=== PATIENT | male | born 1935 ===

== ENCOUNTER 2017-10-20 13:01 | Observation (INO) | payer MEDICARE, BC ==
[2017-10-20 13:05] VITALS: BMI 29.2
--- NOTE | 2017-10-20 13:52 | ED PDOC ---
HPI: Chest Pain Time Seen by Provider: 10/20/17 13:16 Chief Complaint (Nursing): Chest Pain Additional Complaint(s): 81yo M with PMHx CAD (pacemaker, 5 stents), HTN, HLD c/o chest pain. left chest pain x1 day, triggered by walking, duration 10 min, sharp, no radiation, no current chest pain. Cardiology Dr. Thorne last saw pt 2 weeks ago and added HCTZ 25mg daily and amlodipine 5 mg daily. Pt is on asa 81, pravastatin 40mg, coreg 25 BID, hydralazine 25 BID. PCP: [address] [place] [address] (Dr. Kenyon?), last seen 1-2 days ago Past Medical History Vital Signs: Last Vital Signs Temp 97.8 F 10/20/17 13:05 Pulse 62 10/20/17 13:05 Resp 18 10/20/17 13:05 BP 176/79 H 10/20/17 13:05 Pulse Ox 98 10/20/17 14:22 - Medical History PMH: Anxiety, Diverticulitis, HTN, Hypercholesterolemia Denies: Arthritis, CHF, COPD, HIV, Hypothyroidism, Chronic Kidney Disease, Rheumatoid Arthritis - Surgical History Surgical History: Coronary Stent - Family History Family History: States: Unknown Family Hx - Home Medications Home Medications: Ambulatory Orders Medication Instructions Recorded Alprazolam [Xanax] 0.25 mg PO BID 04/13/15 Ergocalciferol (Vitamin D2) 50,000 unit PO QWK 04/13/15 [Vitamin D2] Pravastatin Sodium [Pravachol] 40 mg PO HS 08/26/16 Aspirin [Ecotrin] 81 mg PO DAILY #30 tabec 08/30/16 Carvedilol [Coreg] 25 mg PO Q12H #60 tab 08/30/16 Clopidogrel [Plavix] 75 mg PO DAILY #30 tab 08/30/16 Esomeprazole Magnesium [Nexium] 40 mg PO DAILY #30 capsule. 08/30/16 Etanercept [Enbrel] 50 mg SC QWK #4 syringe 08/30/16 amLODIPine [Norvasc] 10 mg PO DAILY #30 tab 08/30/16 Lisinopril [Zestril] 20 mg PO BID 06/17/17 Primidone [Mysoline] 50 mg PO DAILY 06/17/17 Primidone [Mysoline] 75 mg PO HS 06/17/17 hydrALAZINE [Apresoline] 25 mg PO TID 06/17/17 Ciprofloxacin HCl [Cipro] 500 mg PO BID #14 tablet 06/18/17 - Allergies Allergies/Adverse Reactions: Allergies Allergy/AdvReac Type Severity Reaction Status Date / Time No Known Allergies Allergy Verified 06/17/17 17:44 Review of Systems ROS Statement: Except As Marked, All Systems Reviewed And Found Negative Cardiovascular: Positive for: Chest Pain Physical Exam - Reviewed Nursing Documentation Reviewed: Yes Vital Signs Reviewed: Yes - Physical Exam Appears: Positive for: Well, Non-toxic Head Exam: Positive for: ATRAUMATIC, NORMAL INSPECTION Skin: Positive for: Warm, Dry Neck: Positive for: Normal, Supple Cardiovascular/Chest: Positive for: Regular Rate, Rhythm (paced). Negative for : Chest Non Tender Respiratory: Positive for: Normal Breath Sounds. Negative for: Decreased Breath Sounds Back: Positive for: Normal Inspection Neurologic/Psych: Positive for: Alert, Oriented - ECG O2 Sat by Pulse Oximetry: 98 Medical Decision Making Medical Decision Makin DDX stable angina, ACS, NSTEMI troponin, CBC, CMP, BNP EKG paced CXR reassessment 1421 CXR no consolidations admit to medical service for obs given extensive cardiac hx Disposition - Clinical Impression Clinical Impression: Chest pain - Disposition Disposition Time: 14:22 Condition: STABLE Forms: i[employer]clude (Romanian)
--- NOTE | 2017-10-20 14:22 | CARD ---
APPROVED REPORT EKG Measurement Heart [id number] ME 206P [id number] <Conclusion> AV dual-paced rhythm Abnormal ECG
[2017-10-20 14:48] LABS: BASO # 0.1 K/uL (0.0-0.2); EOS # 0.2 K/uL (0.0-0.7); EOS % 3.7 % (0.0-4.0); HEMOGLOBIN 10.3 g/dL (12.0-18.0); LYMPH # 1.7 K/uL (1.0-4.3); LYMPH % 26.9 % (20.0-40.0); MEAN CELL VOLUME 92.4 fl (80.0-94.0); MEAN CORPUSCULAR HEMOGLOBIN 31.2 pg (27.0-31.0); MEAN CORPUSCULAR HGB CONC 33.8 g/dL (33.0-37.0); MEAN PLATELET VOLUME 8.2 fl (7.2-11.7); MONO # 0.4 K/uL (0.0-0.8); MONO % 6.7 % (0.0-10.0); NEUT # 3.8 K/uL (1.8-7.0); NEUT % 61.7 % (50.0-75.0); NRBC % 0.1 % (0.0-0.0); RBC 3.29 Mil/uL (4.40-5.90); RED CELL DISTRIBUTION WIDTH 13.5 % (11.5-14.5); WHITE BLOOD COUNT 6.1 K/uL (4.8-10.8)
[2017-10-20 15:12] LABS: ALB/GLOB RATIO 1.2 (1.0-2.1); ALBUMIN 4.4 g/dL (3.5-5.0); CALCIUM 9.3 mg/dL (8.4-10.2)
[2017-10-20 15:14] LABS: TROPONIN I 0.013 ng/mL (0.00-0.120)
--- NOTE | 2017-10-20 16:20 | RAD ---
PROCEDURE: CHEST RADIOGRAPH, 1 VIEW HISTORY: chest pain COMPARISON: 06/17/2017. FINDINGS: LUNGS: Clear. PLEURA: No pneumothorax or pleural fluid seen. CARDIOVASCULAR: No radiographic findings to suggest acute or significant cardiovascular disease. Position/ configuration of pacemaker device: Satisfactory. OSSEOUS STRUCTURES: No significant abnormalities. VISUALIZED UPPER ABDOMEN: Normal. OTHER FINDINGS: None. IMPRESSION: No active disease. No acute/significant interval changes.
[2017-10-20] MEDS ORDERED: Pravastatin Sodium 40 MG TAB PO SCH (22:00)
[2017-10-20] MEDS: Insulin Lispro (humaLOG) 100 Units/ml Inj SC SCH (23:00)
[2017-10-20 23:39] VITALS: RESP 18
[2017-10-21] MEDS: Insulin Lispro (humaLOG) 100 Units/ml Inj SC SCH ×2 (06:25→13:00)
[2017-10-21] MEDS ORDERED: Enoxaparin 30 mg Syringe SC SCH ×3 (09:00)
[2017-10-21] MEDS ORDERED: Pantoprazole 40 mg EC Tab PO SCH (09:00)
[2017-10-21] MEDS ORDERED: Ergocalciferol 50,000 Intl Units Cap PO SCH (09:00)
--- NOTE | 2017-10-21 11:01 | CP.PCM.CON ---
History of Present Illness - History of Present Illness History of Present Illness: this 81-year- old man with a history of hypertension and diffuse vascular disease requiring coronary bypass graft surgery and carotid endarterectomy was brought to the hospital complaining of chest discomfort upon walking approximately 3 blocks. Patient has not experienced this discomfort in the past. And walking around in the house had not produce similar discomfort. He did not radiate to his jaw or was not accompanied by any perspiration nausea vomiting. 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 He has been seeing a ordnance engineer on a regular basis. The patient is also known to have chronic kidney disease. Physical examination shows an elderly man alert awake and coherent able to lie flat and breathe comfortably and carry on a conversation. His respiratory rate was 14-16 breaths per minute and his telemetry shows atrial paced and ventricular paced rhythm.his blood pressure was 140/74 mmHg. His jugular venous pressure was not elevated. There was no edema or his lower extremity. His pedal pulses for feebly felt. There were no carotid bruits. His apex was not palpable. First and second heart sounds were normal. There was no murmur there was no gallop there were no rales. His abdomen was soft liver and spleen are not palpable. His electro-cardiogram showed atrial and ventricular paced rhythm. His lab data showed normal troponins indicating no evidence off myocyte injury. His proBNP was normal. His GFR was 42 mL per minute indicating stage II chronic kidney disease. Impression: chest pain in a patient with known coronary artery disease. Acute coronary syndrome was ruled out. I have instructed the patient to take aspirin on a regular basis and have prescribed nitroglycerin to be taken on a when necessary basis. I will arrange a nuclear stress test to evaluate for evidence of potentially ischemic myocardium. I have spoken with his daughter who is a nurse at length about it. The patient may be allowed to return home to be managed as an outpatient. Past Patient History - Past Medical History & Family History Past Medical History?: Yes - Past Social History Smoking Status: Never Smoked - CARDIAC Hx Cardiac Disorders: Yes Hx Hypercholesterolemia: Yes Hx Hypertension: Yes Hx Pacemaker: Yes Hx Peripheral Edema: Yes - PULMONARY Hx Chronic Obstructive Pulmonary Disease (COPD): No - NEUROLOGICAL HX Cerebrovascular Accident: No - HEENT Hx HEENT Problems: No Hx Cataracts: Yes - RENAL Hx Chronic Kidney Disease: No - ENDOCRINE/METABOLIC Hx Hypothyroidism: No - HEMATOLOGICAL/ONCOLOGICAL Hx Human Immunodeficiency Virus (HIV): No - INTEGUMENTARY Hx Dermatological Problems: No - MUSCULOSKELETAL/RHEUMATOLOGICAL Hx Arthritis: No Hx Falls: No Hx Rheumatoid Arthritis: Yes - GASTROINTESTINAL Hx Diverticulitis: Yes - GENITOURINARY/GYNECOLOGICAL Hx Genitourinary Disorders: No - PSYCHIATRIC Hx Anxiety: Yes Hx Substance Use: No - SURGICAL HISTORY Hx Cardiac Catheterization: Yes Hx Coronary Stent: Yes (X5) Hx Herniorrhaphy: Yes - ANESTHESIA Hx Anesthesia: Yes Hx Anesthesia Reactions: No Hx Malignant Hyperthermia: No Has any member of the family had a problem w/ anesthesia?: No Meds Allergies/Adverse Reactions: Allergies Allergy/AdvReac Type Severity Reaction Status Date / Time No Known Allergies Allergy Verified 06/17/17 17:44 - Medications Medications: Current Medications Alprazolam (Xanax) 0.25 mg PO Q12 PRN PRN Reason: Anxiety Stop: 10/27/17 21:01 Last Admin: 10/20/17 21:44 Dose: 0.25 mg Amlodipine Besylate (Norvasc) 5 mg PO DAILY [facility] Last Admin: 10/21/17 08:52 Dose: 5 mg Carvedilol (Coreg) 25 mg PO Q12 [facility] Last Admin: 10/21/17 08:54 Dose: 25 mg Doxazosin Mesylate (Cardura) 2 mg PO BID [facility] Last Admin: 10/21/17 08:55 Dose: 2 mg Enoxaparin Sodium (Lovenox) 30 mg SC DAILY [facility] PRN Reason: Protocol Last Admin: 10/21/17 08:52 Dose: 30 mg Ergocalciferol (Drisdol 50,000 Intl Units Cap) 1 cap PO QWK [facility] Gabapentin (Neurontin) 100 mg PO Q8 [facility] Last Admin: 10/21/17 08:54 Dose: 100 mg Hydralazine HCl (Apresoline) 25 mg PO Q8 [facility] Last Admin: 10/21/17 08:53 Dose: 25 mg Hydrochlorothiazide (Microzide) 12.5 mg PO DAILY [facility] Last Admin: 10/21/17 08:53 Dose: 12.5 mg Insulin Human Lispro (Humalog) 0 units SC ACCU-CHECK [facility] PRN Reason: Protocol Last Admin: 10/21/17 06:25 Dose: Not Given Pantoprazole Sodium (Protonix Ec Tab) 40 mg PO DAILY [facility] Last Admin: 10/21/17 08:53 Dose: 40 mg Pravastatin Sodium (Pravachol) 40 mg PO HS [facility] Last Admin: 10/20/17 21:37 Dose: 40 mg Primidone (Mysoline) 50 mg PO Q12 [facility] Last Admin: 10/21/17 08:53 Dose: 50 mg Results - Vital Signs Recent Vital Signs: Last Vital Signs Temp 98.4 F 10/21/17 08:00 Pulse 63 10/21/17 08:54 Resp 18 10/21/17 08:00 BP 178/68 H 10/21/17 08:54 Pulse Ox 97 10/21/17 08:00 - Labs Result Diagrams: 10/20/17 14:43 10/20/17 14:43 Labs: Laboratory Results - last 24 hr 10/20/17 10/20/17 10/20/17 14:43 14:43 21:38 WBC 6.1 RBC 3.29 L Hgb 10.3 L Hct 30.4 L MCV 92.4 MCH 31.2 H MCHC 33.8 RDW 13.5 Plt Count 208 MPV 8.2 Neut % (Auto) 61.7 Lymph % (Auto) 26.9 [place] % (Auto) 6.7 Eos % (Auto) 3.7 Baso % (Auto) 1.0 Neut # (Auto) 3.8 Lymph # (Auto) 1.7 [place] # (Auto) 0.4 Eos # (Auto) 0.2 Baso # (Auto) 0.1 Sodium 140 Potassium 4.8 Chloride 100 Carbon Dioxide 28 Anion Gap 17 BUN 26 H Creatinine 1.6 H Est GFR ( Amer) 50 Est GFR (Non-Af Amer) 42 POC Glucose (mg/dL) 82 Random Glucose 100 Calcium 9.3 Total Bilirubin 0.4 AST 35 ALT 48 Alkaline Phosphatase 80 Troponin I 0.0130 NT-Pro-B Natriuret Pep 668 Total Protein 7.9 Albumin 4.4 Globulin 3.5 Albumin/Globulin Ratio 1.2 10/20/17 10/21/17 10/21/17 22:50 04:15 05:17 WBC RBC Hgb Hct MCV MCH MCHC RDW Plt Count MPV Neut % (Auto) Lymph % (Auto) [place] % (Auto) Eos % (Auto) Baso % (Auto) Neut # (Auto) Lymph # (Auto) [place] # (Auto) Eos # (Auto) Baso # (Auto) Sodium Potassium Chloride Carbon Dioxide Anion Gap BUN Creatinine Est GFR ( Amer) Est GFR (Non-Af Amer) POC Glucose (mg/dL) 84 Random Glucose Calcium Total Bilirubin AST ALT Alkaline Phosphatase Troponin I 0.0140 0.0210 NT-Pro-B Natriuret Pep Total Protein Albumin Globulin Albumin/Globulin Ratio
--- NOTE | 2017-10-21 11:24 | CARD ---
APPROVED REPORT EXAM: Two-dimensional and M-mode echocardiogram with Doppler and color Doppler. Other Information Quality : GoodRhythm : Pacemaker INDICATION Chest Pain Surgery/Intervention Pacemaker: 2D DIMENSIONS IVSd0.98 (0.7-1.1cm)LVDd4.79 (3.9-5.9cm) LVOT Diameter2.32 (1.8-2.4cm)PWd0.72 (0.7-1.1cm) IVSs1.64 (0.8-1.2cm)LVDs2.40 (2.5-4.0cm) FS (%) 49.9 %PWs1.45 (0.8-1.2cm) M-Mode DIMENSIONS Left Atrium (MM)4.62 (2.5-4.0cm)IVSd1.29 (0.7-1.1cm) Aortic Root3.03 (2.2-3.7cm)LVDd5.47 (4.0-5.6cm) Aortic Cusp Exc.1.94 (1.5-2.0cm)PWd1.06 (0.7-1.1cm) IVSs1.85 cmFS (%) 41 % LVDs3.21 (2.0-3.8cm)PWs1.91 cm Mitral Valve MV E Saguyays81.3cm/sMV DECEL [id number] A Pwbnbajs47.2cm/s MV TAL34sgR/A ratio1.0MVA (PHT)3.01cm2 TDI Lateral E' Peak V9.04cm/sMedial E' Peak V6.52cm/sE/Lateral E'8.2 E/Medial E'11.4 Pulmonary Valve PV Peak Jxpyqsgt818.3cm/s LEFT VENTRICLE The left ventricle is normal size. There is normal left ventricular wall thickness. Left ventricle systolic function is normal. The Ejection Fraction is 65-70%. There is normal LV segmental wall motion. Transmitral Doppler flow pattern is Grade I-abnormal relaxation pattern. RIGHT VENTRICLE The right ventricle is normal size. There is normal right ventricular wall thickness. The right ventricular systolic function is normal. ATRIA The left atrium is mildly dilated. The right atrium size is normal. AORTIC VALVE The aortic valve is normal in structure. Pacing lead was seen traversing the valve. No aortic regurgitation is present. There is no aortic valvular stenosis. MITRAL VALVE The mitral valve is normal in structure. There is no evidence of mitral valve prolapse. There is no mitral valve stenosis. There is no mitral valve regurgitation noted. TRICUSPID VALVE The tricuspid valve is normal in structure. There is no tricuspid valve regurgitation noted. PULMONIC VALVE The pulmonary valve is normal in structure. There is no pulmonic valvular regurgitation. GREAT VESSELS The aortic root is normal in size. The IVC is normal in size and collapses >50% with inspiration. PERICARDIAL EFFUSION The pericardium appears normal. <Conclusion> The left ventricle is normal size. There is normal left ventricular wall thickness. There is normal LV segmental wall motion. Left ventricle systolic function is normal. The Ejection Fraction is 65-70%. Transmitral Doppler flow pattern is Grade I-abnormal relaxation pattern.
[2017-10-21 11:43] VITALS: BP 143/63; PULSE 57; TEMP 98.3; O2SAT 95
--- NOTE | 2017-10-21 13:51 | CP.PCM.HP ---
History of Present Illness - History of Present Illness History of Present Illness: Cc: Chest pain An 81 year old male with a pmhx of CAD with CABG, PPM, HTN and hyperlipidemia who present to the ED with complains of chest pain x 1 day. Patient states pain started after he did about a 10 minute walk. He described the pain as sharp. The pain did not radiate to his arm, jaw or back. No current chest pain. Denies headache, sob, nausea, fever or chills. Pt's under cutter, Dr. Thorne had seen pt 2 weeks ago and added HCTZ 25mg and amlodipine 5 mg daily to his regimen. Pt has been compliant with his cardiac meds. Present on Admission - Present on Admission Any Indicators Present on Admission: No Review of Systems - Review of Systems All systems: reviewed and no additional remarkable complaints except (as stated) - Constitutional Constitutional: As Per HPI - Cardiovascular Cardiovascular: Chest Pain - Respiratory Respiratory: As Per HPI Past Patient History - Past Medical History & Family History Past Medical History?: Yes - Past Social History Smoking Status: Never Smoked - CARDIAC Hx Cardiac Disorders: Yes Hx Hypercholesterolemia: Yes Hx Hypertension: Yes Hx Pacemaker: Yes Hx Peripheral Edema: Yes - PULMONARY Hx Chronic Obstructive Pulmonary Disease (COPD): No - NEUROLOGICAL HX Cerebrovascular Accident: No - HEENT Hx HEENT Problems: No Hx Cataracts: Yes - RENAL Hx Chronic Kidney Disease: No - ENDOCRINE/METABOLIC Hx Hypothyroidism: No - HEMATOLOGICAL/ONCOLOGICAL Hx Human Immunodeficiency Virus (HIV): No - INTEGUMENTARY Hx Dermatological Problems: No - MUSCULOSKELETAL/RHEUMATOLOGICAL Hx Arthritis: No Hx Falls: No Hx Rheumatoid Arthritis: Yes - GASTROINTESTINAL Hx Diverticulitis: Yes - GENITOURINARY/GYNECOLOGICAL Hx Genitourinary Disorders: No - PSYCHIATRIC Hx Anxiety: Yes Hx Substance Use: No - SURGICAL HISTORY Hx Cardiac Catheterization: Yes Hx Coronary Stent: Yes (X5) Hx Herniorrhaphy: Yes - ANESTHESIA Hx Anesthesia: Yes Hx Anesthesia Reactions: No Hx Malignant Hyperthermia: No Has any member of the family had a problem w/ anesthesia?: No Meds Allergies/Adverse Reactions: Allergies Allergy/AdvReac Type Severity Reaction Status Date / Time No Known Allergies Allergy Verified 06/17/17 17:44 Physical Exam - Constitutional Appears: Well, No Acute Distress - Head Exam Head Exam: ATRAUMATIC, NORMOCEPHALIC - Eye Exam Eye Exam: EOMI, Normal appearance, PERRL Pupil Exam: NORMAL ACCOMODATION - ENT Exam ENT Exam: Mucous Membranes Moist - Respiratory Exam Respiratory Exam: Clear to Auscultation Bilateral, NORMAL BREATHING PATTERN - Cardiovascular Exam Cardiovascular Exam: REGULAR RHYTHM (Paced), +S1, +S2 - GI/Abdominal Exam GI & Abdominal Exam: Normal Bowel Sounds, Soft - Rectal Exam Rectal Exam: Deferred - Extremities Exam Extremities exam: Positive for: full ROM, pedal pulses present - Back Exam Back exam: NORMAL INSPECTION - Neurological Exam Neurological exam: Alert, Oriented x3 - Psychiatric Exam Psychiatric exam: Normal Affect, Normal Mood - Skin Skin Exam: Normal Color, Warm Results - Vital Signs Recent Vital Signs: Last Vital Signs Temp 98.3 F 10/21/17 11:43 Pulse 57 L 10/21/17 11:43 Resp 18 10/21/17 11:43 BP 143/63 10/21/17 11:43 Pulse Ox 95 10/21/17 11:43 - Labs Result Diagrams: 10/20/17 14:43 10/20/17 14:43 Labs: Laboratory Results - last 24 hr 10/20/17 10/20/17 10/20/17 14:43 14:43 21:38 WBC 6.1 RBC 3.29 L Hgb 10.3 L Hct 30.4 L MCV 92.4 MCH 31.2 H MCHC 33.8 RDW 13.5 Plt Count 208 MPV 8.2 Neut % (Auto) 61.7 Lymph % (Auto) 26.9 [place] % (Auto) 6.7 Eos % (Auto) 3.7 Baso % (Auto) 1.0 Neut # (Auto) 3.8 Lymph # (Auto) 1.7 [place] # (Auto) 0.4 Eos # (Auto) 0.2 Baso # (Auto) 0.1 Sodium 140 Potassium 4.8 Chloride 100 Carbon Dioxide 28 Anion Gap 17 BUN 26 H Creatinine 1.6 H Est GFR ( Amer) 50 Est GFR (Non-Af Amer) 42 POC Glucose (mg/dL) 82 Random Glucose 100 Calcium 9.3 Total Bilirubin 0.4 AST 35 ALT 48 Alkaline Phosphatase 80 Troponin I 0.0130 NT-Pro-B Natriuret Pep 668 Total Protein 7.9 Albumin 4.4 Globulin 3.5 Albumin/Globulin Ratio 1.2 10/20/17 10/21/17 10/21/17 22:50 04:15 05:17 WBC RBC Hgb Hct MCV MCH MCHC RDW Plt Count MPV Neut % (Auto) Lymph % (Auto) [place] % (Auto) Eos % (Auto) Baso % (Auto) Neut # (Auto) Lymph # (Auto) [place] # (Auto) Eos # (Auto) Baso # (Auto) Sodium Potassium Chloride Carbon Dioxide Anion Gap BUN Creatinine Est GFR ( Amer) Est GFR (Non-Af Amer) POC Glucose (mg/dL) 84 Random Glucose Calcium Total Bilirubin AST ALT Alkaline Phosphatase Troponin I 0.0140 0.0210 NT-Pro-B Natriuret Pep Total Protein Albumin Globulin Albumin/Globulin Ratio - EKG Data EKG comments: AV dual-paced rhythm Abnormal ECG - Imaging and Cardiology Chest x-ray Additional comment: PROCEDURE: CHEST RADIOGRAPH, 1 VIEW HISTORY: chest pain COMPARISON: 06/17/2017. FINDINGS: LUNGS: Clear. PLEURA: No pneumothorax or pleural fluid seen. CARDIOVASCULAR: No radiographic findings to suggest acute or significant cardiovascular disease. Position/ configuration of pacemaker\AICD device: Satisfactory. OSSEOUS STRUCTURES: No significant abnormalities. VISUALIZED UPPER ABDOMEN: Normal. OTHER FINDINGS: None. IMPRESSION: No active disease. No acute/significant interval changes. Assessment & Plan (1) Chest pain Status: Acute (2) CAD (coronary artery disease) Status: Chronic (3) HTN (hypertension) Status: Chronic - Assessment and Plan (Free Text) Assessment: 81 year old male with pmhx of CAD with CABG, PPM, HTN, HL presents with chest pain x 1 day Plan: R/o ACS Troponins neg. x 3 Echo - normal LV function, EF 65-70% cardiology consult
--- NOTE | 2017-10-21 21:03 | CP.PCM.DIS ---
Provider - Provider Date of Admission: 10/20/17 15:49 Attending physician: Mike Barragan MD Diagnosis - Discharge Diagnosis (1) Chest pain Status: Acute (2) CAD (coronary artery disease) Status: Chronic (3) HTN (hypertension) Status: Chronic Hospital Course - Lab Results Lab Results: Most Recent Lab Values WBC 6.1 K/uL (4.8-10.8) 10/20/17 14:43 RBC 3.29 Mil/uL (4.40-5.90) L 10/20/17 14:43 Hgb 10.3 g/dL (12.0-18.0) L 10/20/17 14:43 Hct 30.4 % (35.0-51.0) L 10/20/17 14:43 MCV 92.4 fl (80.0-94.0) 10/20/17 14:43 MCH 31.2 pg (27.0-31.0) H 10/20/17 14:43 MCHC 33.8 g/dL (33.0-37.0) 10/20/17 14:43 RDW 13.5 % (11.5-14.5) 10/20/17 14:43 Plt Count 208 K/uL (130-400) 10/20/17 14:43 MPV 8.2 fl (7.2-11.7) 10/20/17 14:43 Neut % (Auto) 61.7 % (50.0-75.0) 10/20/17 14:43 Lymph % (Auto) 26.9 % (20.0-40.0) 10/20/17 14:43 [place] % (Auto) 6.7 % (0.0-10.0) 10/20/17 14:43 Eos % (Auto) 3.7 % (0.0-4.0) 10/20/17 14:43 Baso % (Auto) 1.0 % (0.0-2.0) 10/20/17 14:43 Neut # (Auto) 3.8 K/uL (1.8-7.0) 10/20/17 14:43 Lymph # (Auto) 1.7 K/uL (1.0-4.3) 10/20/17 14:43 [place] # (Auto) 0.4 K/uL (0.0-0.8) 10/20/17 14:43 Eos # (Auto) 0.2 K/uL (0.0-0.7) 10/20/17 14:43 Baso # (Auto) 0.1 K/uL (0.0-0.2) 10/20/17 14:43 Sodium 140 mmol/l (132-148) 10/20/17 14:43 Potassium 4.8 MMOL/L (3.6-5.0) 10/20/17 14:43 Chloride 100 mmol/L (98-107) 10/20/17 14:43 Carbon Dioxide 28 mmol/L (22-30) 10/20/17 14:43 Anion Gap 17 (10-20) 10/20/17 14:43 BUN 26 mg/dl (9-20) H 10/20/17 14:43 Creatinine 1.6 mg/dl (0.8-1.5) H 10/20/17 14:43 Est GFR ( Amer) 50 10/20/17 14:43 Est GFR (Non-Af Amer) 42 10/20/17 14:43 POC Glucose (mg/dL) 130 mg/dL (65-110) H 10/21/17 10:30 Random Glucose 100 mg/dL (75-110) 10/20/17 14:43 Calcium 9.3 mg/dL (8.4-10.2) 10/20/17 14:43 Total Bilirubin 0.4 mg/dl (0.2-1.3) 10/20/17 14:43 AST 35 U/L (17-59) 10/20/17 14:43 ALT 48 U/L (21-72) 10/20/17 14:43 Alkaline Phosphatase 80 U/L (38-126) 10/20/17 14:43 Troponin I 0.0210 ng/mL (0.00-0.120) 10/21/17 04:15 NT-Pro-B Natriuret Pep 668 pg/ml (0-900) 10/20/17 14:43 Total Protein 7.9 G/DL (6.3-8.2) 10/20/17 14:43 Albumin 4.4 g/dL (3.5-5.0) 10/20/17 14:43 Globulin 3.5 gm/dL (2.2-3.9) 10/20/17 14:43 Albumin/Globulin Ratio 1.2 (1.0-2.1) 10/20/17 14:43 - Hospital Course Hospital Course: 81 year old male with pmhx of CAD with CABG, PPM, HTN and HL who presented with c/o of chest pain x 1 day after a 10 min walk. No chest pain was present while in hospital. The patient had a cardiology work up, cardiac enzymes were normal, echo was normal, ACS was ruled out. The patient will f/u with his trustee of estate Dr. Thorne as outpatient for stress testing and further cardiac management. The patient was discharged home with instructions for outpatient follow up. Discharge Exam - Head Exam Head Exam: ATRAUMATIC, NORMOCEPHALIC - Respiratory Exam Respiratory Exam: Clear to PA & Lateral, NORMAL BREATHING PATTERN - Cardiovascular Exam Cardiovascular Exam: REGULAR RHYTHM (paced), +S1, +S2 - GI/Abdominal Exam GI & Abdominal Exam: Normal Bowel Sounds - Neurological Exam Neurological exam: Alert, Oriented x3 - Psychiatric Exam Psychiatric exam: Normal Affect, Normal Mood - Skin Skin Exam: Normal Color, Warm Discharge Plan - Follow Up Plan Condition: STABLE Disposition: HOME/ ROUTINE Instructions: Cardiac Stress Test, Chest Pain (DC) Additional Instructions: pt. cleared for discharge to Home today by pt. for outpatient stress test and will f/u with in 1 week Referrals: José Thorne MD [Staff Provider] -
== END 2017-10-21 14:41 | disposition home or self-care (01) ==
LOC: H.ER 13:01 → H.ERHOLD 15:49 → H.TEL 16:46
PROVIDERS: ADMIT Internal Medicine; ATTEND Internal Medicine
DX: R07.9 Chest pain, unspecified (principal); I25.10 Atherosclerotic heart disease of native coronary artery without angina pectoris; M06.9 Rheumatoid arthritis, unspecified; N18.2 Chronic kidney disease, stage 2 (mild); I12.9 Hypertensive chronic kidney disease with stage 1 through stage 4 chronic kidney disease, or unspecified chronic kidney disease; Z95.1 Presence of aortocoronary bypass graft; Z95.5 Presence of coronary angioplasty implant and graft; Z95.0 Presence of cardiac pacemaker; E78.00 Pure hypercholesterolemia, unspecified; E78.5 Hyperlipidemia, unspecified; F41.9 Anxiety disorder, unspecified; M17.0 Bilateral primary osteoarthritis of knee
CPT/HCPCS: 36415; 71045; 80053; 82948; 83880; 84484; 85025; 93005; 93306; 99285; G0378; J0360; J1650